=== PATIENT | female | born 1990 | race American Indian/Alaskan Native ===

== ENCOUNTER 2016-08-09 05:59 | Emergency (ER) | payer MEDICAID | END 2016-08-09 06:01 | disposition left against medical advice (07) | LOC: ED 05:59 | DX: M54.5 Low back pain (principal); R51 Headache; Z53.21 Procedure and treatment not carried out due to patient leaving prior to being seen by health care provider ==

== ENCOUNTER 2016-11-11 09:59 | Emergency (ER) | payer SELFPAY ==
[2016-11-11] MEDS ORDERED: TORADOL ONE (12:36)
[2016-11-11] MEDS ORDERED: NACL 0.9% 500 ML IR ONE (12:37)
[2016-11-11] MEDS ORDERED: MARCAINE-EPI/PF 0.5%-1:200,000 INFILTRATI ONE ×2 (12:45→13:00)
[2016-11-11] MEDS ORDERED: TORADOL IM ONE (12:45)
[2016-11-11] MEDS ORDERED: NACL 0.9% IR ONE (12:45)
--- NOTE | 2016-11-11 12:46 | Emergency Department Report ---
- General Chief complaint: Skin/Abscess/Foreign Body Stated complaint: PILONIDAL CYST Time Seen by Provider: 11/11/16 12:15 Source: patient Mode of arrival: Ambulatory Limitations: No Limitations - History of Present Illness Initial comments: This is a 26-year-old female well-nourished with nontoxic or ill in appearance that presents with abscess to the upper midline buttocks area. 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 She stated she has been having incision and drainage for the past 5 years to the area. Patient also stated 3 years ago she had surgery to remove the sac formation/cyst the patient still developed abscesses in the region. Patient denies any pus, drainage, fever, chest pain, short of breath, numbness, tingling , fever or chills. Patient denies any pus or drainage. Describes pain as aching with a level VII out of 10. Patient also stated that she has been prescribed Clinda and Keflex post incision and drainage but stated Bactrim works the best for her after the incision and drainage the area. Patient denies any allergies. Denies past medical history. Last menstrual period 10/19. Patient denies a chance of being . Patient stated she does not remeber getting any tetanus shouts during the past incision and drainage. Patient stated she would like to get one today. MD complaint: abscess/boil -: Gradual, days(s) (3) Tetanus Up to Date: unsure (as per patient does not remember and would like to get one today) Location: buttocks (midline upper) Severity: mild Severity scale (0 -10): 7 Quality: aching Consistency: constant Worsens with: none Context: none Associated symptoms: denies other symptoms Treatments Prior to Arrival: none - Related Data Previous Rx's Medication Instructions Recorded Last Taken Type Ibuprofen [Motrin 600 MG tab] 600 mg PO Q8H PRN #20 tablet 11/11/16 Unknown Rx Sulfamethoxazole/Trimethoprim 1 each PO BID 7 Days 11/11/16 Unknown Rx [Bactrim DS TAB] Allergies Allergy/AdvReac Type Severity Reaction Status Date / Time No Known Allergies Allergy Verified 11/11/16 10:09 Abscess Boil HPI - HPI Chief Complaint: Skin/Abscess/Foreign Body Stated Complaint: PILONIDAL CYST Time Seen by Provider: 11/11/16 12:15 Home Medications: Previous Rx's Medication Instructions Recorded Last Taken Type Ibuprofen [Motrin 600 MG tab] 600 mg PO Q8H PRN #20 tablet 11/11/16 Unknown Rx Sulfamethoxazole/Trimethoprim 1 each PO BID 7 Days 11/11/16 Unknown Rx [Bactrim DS TAB] Allergies/Adverse Reactions: Allergies Allergy/AdvReac Type Severity Reaction Status Date / Time No Known Allergies Allergy Verified 11/11/16 10:09 ED Review of Systems ROS: Stated complaint: PILONIDAL CYST Other details as noted in HPI Constitutional: denies: chills, fever Eyes: denies: eye pain, eye discharge, vision change ENT: denies: ear pain, throat pain Respiratory: denies: cough, shortness of breath, wheezing Cardiovascular: denies: chest pain, palpitations Endocrine: no symptoms reported Gastrointestinal: denies: abdominal pain, nausea, diarrhea Genitourinary: denies: urgency, dysuria, discharge Musculoskeletal: denies: back pain, joint swelling, arthralgia Skin: denies: rash, lesions Neurological: denies: headache, weakness, paresthesias Psychiatric: denies: anxiety, depression Hematological/Lymphatic: denies: easy bleeding, easy bruising ED Past Medical Hx - Past Medical History Hx Hypertension: No Hx Heart Attack/AMI: No Hx Diabetes: No Hx Deep Vein Thrombosis: No Hx Liver Disease: No Hx Renal Disease: No Hx Sickle Cell Disease: No Hx Seizures: No Hx Asthma: No Hx COPD: No Hx HIV: No Additional medical history: pilonidal cyst. OBESITY - Surgical History Hx Pacemaker: No Hx Internal Defibrillator: No Additional Surgical History: several pilonidal cysts removed - Social History Smoking Status: Former Smoker Substance Use Type: Alcohol, Prescribed - Medications Home Medications: Home Medications Medication Instructions Recorded Confirmed Last Taken Type Ibuprofen [Motrin 600 MG tab] 600 mg PO Q8H PRN #20 tablet 11/11/16 Unknown Rx Sulfamethoxazole/Trimethoprim 1 each PO BID 7 Days 11/11/16 Unknown Rx [Bactrim DS TAB] ED Physical Exam - General Limitations: No Limitations General appearance: alert, in no apparent distress - Head Head exam: Present: atraumatic, normocephalic, normal inspection - Eye Eye exam: Present: normal appearance, PERRL, EOMI. Absent: scleral icterus, conjunctival injection, nystagmus, periorbital swelling, periorbital tenderness Pupils: Present: normal accommodation - ENT ENT exam: Present: normal exam, normal orophraynx, mucous membranes moist, TM's normal bilaterally, normal external ear exam - Neck Neck exam: Present: normal inspection, full ROM. Absent: tenderness, meningismus, lymphadenopathy, thyromegaly - Respiratory Respiratory exam: Present: normal lung sounds bilaterally. Absent: respiratory distress, wheezes, rales, rhonchi, stridor, chest wall tenderness, accessory muscle use, decreased breath sounds, prolonged expiratory - Cardiovascular Cardiovascular Exam: Present: regular rate, normal rhythm, normal heart sounds. Absent: bradycardia, tachycardia, irregular rhythm, systolic murmur, diastolic murmur, rubs, gallop - GI/Abdominal GI/Abdominal exam: Present: soft, normal bowel sounds. Absent: distended, tenderness, guarding, rebound, rigid, diminished bowel sounds - Rectal Rectal exam: Present: deferred - Extremities Exam Extremities exam: Present: normal inspection, full ROM, normal capillary refill. Absent: tenderness, pedal edema, joint swelling, calf tenderness - Back Exam Back exam: Present: normal inspection, full ROM. Absent: tenderness, CVA tenderness (R), CVA tenderness (L), muscle spasm, paraspinal tenderness, vertebral tenderness, rash noted - Neurological Exam Neurological exam: Present: alert, oriented X3, CN II-XII intact, normal gait, reflexes normal - Psychiatric Psychiatric exam: Present: normal affect, normal mood - Skin Skin exam: Present: warm, dry, intact, normal color. Absent: rash - Other Other exam information: 5 cm abscess noted to the upper midline buttock area. No pus or drainage. No surrounding cellulitis noted. No redness. Tender to touch. Fluctuance noted. ED Course Vital Signs 11/11/16 11/11/16 11/11/16 10:04 11:34 13:01 Temperature 98.6 F 98.6 F Pulse Rate 90 82 Respiratory 20 16 18 Rate Blood Pressure 136/76 Blood Pressure 126/81 [Right] O2 Sat by Pulse 100 100 Oximetry - I & D Medial Buttocks Type of Procedure: Complex Site: Midline Proximal buttock Blade Size: 11 I & D Procedure: betadine prep, sterile drapes applied, sterile dressing applied Progress: Under sterile procedure, I used Betadine to cleanse the area. I then used 4 x 4 to try and clean the area. I used 25-gauge 5/8 hypo-to inject 0.5% Marcaine with epi 1-200,000 with total volume of 6 mL. I then used Betadine again cleansed area. I then used an 11 blade to make a decision of 1 cm to the site. About 30 mL of purulent drainage noted. I then used a hemostat to break down the abscess. I used 0.9% saline irrigation to flush the area with a total 60 cc . I then used one half iodoform packing. A sterile 4 x 4 with tape has in place as dressing. Patient's are well with no acute signs of distress or complications noted. ED Medical Decision Making - Medical Decision Making Ed course: This is a 26-year-old female that presents with abscess 1- patient was examined by myself. Patient received Toradol 60 mg IM, tetanus in the ED. 2- incision and drainage has been performed by myself. Patient thought well. No signs of distress noted. 3- patient was discharged with Bactrim and was instructed to follow up with her primary care doctor in 3-5 days or if symptoms such as pain unbearable, fever, chills, increased swelling return to emergency room as soon as possible. 4- patient was also instructed to return in 2 days for packing removal. 5- at time time of discharge, the patient does not seem toxic or ill in appearance. No acute signs of distress noted. Patient agrees to discharge treatment plan of care. No further questions noted by the patient. Critical care attestation.: If time is entered above; I have spent that time in minutes in the direct care of this critically ill patient, excluding procedure time. ED Disposition Clinical Impression: Abscess Disposition: DC-01 TO HOME OR SELFCARE Is pt being admited?: No Does the pt Need Aspirin: No Condition: Stable Instructions: Sulfamethoxazole/Trimethoprim (By mouth), Ibuprofen (By mouth), Abscess Incision and Drainage (ED), Acute Wound Care (ED), Abscess (ED) Additional Instructions: Follow up with your primary care doctor in 3-5 days or if symptoms such as pain unbearable, fever, chills, increased swelling return to emergency room as soon as possible. Return to the ER and 48 hours to reassess and remove packing. Take full course of antibodies as prescribed. Prescriptions: Ibuprofen [Motrin 600 MG tab] 600 mg PO Q8H PRN #20 tablet PRN Reason: Pain Sulfamethoxazole/Trimethoprim [Bactrim DS TAB] 1 each PO BID 7 Days Referrals: PRIMARY CAREMD [Primary Care Provider] - 3-5 Days DIA BALL JR, MD [Staff Physician] - 3-5 Days [facility] [Outside] - 3-5 Days [facility] [Outside] - 3-5 Days Forms: Work/School Release Form(ED)
[2016-11-11] MEDS ORDERED: BOOSTRIX IM ONE (12:55)
[2016-11-11 14:21] VITALS: BP 112/78
== END 2016-11-11 14:21 | disposition home or self-care (01) ==
LOC: ED 09:59
DX: L02.31 Cutaneous abscess of buttock (principal); Z87.891 Personal history of nicotine dependence
CPT/HCPCS: 10061; 90471; 90715; 96372; 99282; J1885

== ENCOUNTER 2017-08-19 09:57 | Emergency (ER) | payer SELFPAY ==
[2017-08-19] MEDS ORDERED: TYLENOL PO ONE (10:45)
[2017-08-19 11:36] LABS: Hemoglobin 10.2 gm/dl (10.1-14.3); Mean Corpuscular HGB Conc 32 % (30-34); Mean Corpuscular Volume 75 fl (79-97); Platelet Count 171 K/mm3 (140-440); Red Blood Count 4.25 M/mm3 (3.65-5.03); Red Cell Distribution Width 17.1 % (13.2-15.2)
[2017-08-19 11:37] LABS: Mean Corpuscular Hemoglobin 24 pg (28-32)
--- NOTE | 2017-08-19 14:04 | Ultrasound Report ---
ULTRASOUND OB LESS THAN 14 WEEKS - TRANSABDOMINAL AND TRANSVAGINAL INDICATION: Pain, bleeding. COMPARISON: None similar during this gestation. FINDINGS: Transabdominal and transvaginal pelvic sonography performed in this patient with LMP of 06/25/2017 and estimated menstrual age of 7 weeks and 6 days. It demonstrates an anteverted, gravid uterus estimated at 11.7 x 7.9 x 8.1 cm with a single, viable intrauterine gestation with heart rate of 176 beats per minute. Mean crown-rump length of 2.16 cm corresponds to 8 weeks and 6 days. A 3-4 mm yolk sac also seen. Small pelvic free fluid. Cervix closed. Unremarkable 2.6 x 1.8 x 2.1 cm right ovary. Approximately 5.6 x 4 x 5.4 cm left ovary demonstrates a 4.8 x 3.6 cm intrinsic cyst, endovaginal image 21. CONCLUSION: 1. Single, live intrauterine gestation with an ultrasound estimated age of 8 weeks and 6 days and BATSHEVA of 04/01/2018. 2. Left ovarian cyst. Thank you for the opportunity to participate in this patient's care.
--- NOTE | 2017-08-19 17:05 | Emergency Department Report ---
HPI - General Chief Complaint: Abdominal Pain Time Seen by Provider: 08/19/17 16:54 - HPI HPI: Room 8 The patient is a 27-year-old female presenting with a chief complaint abdominal pain. The patient states for the past 6 weeks she's had lower abdominal pain and cramping in addition to low back pain. Patient states the pain is been occurring intermittently throughout this . The patient states she has not yet seen an [facility]INE [facility]PER[facility] for this . The patient states she had vaginal bleeding for 2 days but it stopped today. Patient denies dysuria or hematuria Location: Pelvis Duration: 6 weeks Quality: Cramping Severity: Moderate Modifying factors: [see above] Context: [see above] Mode of transportation: Unknown ED Past Medical Hx - Past Medical History Additional medical history: pilonidal cyst. OBESITY - Surgical History Additional Surgical History: several pilonidal cysts removed - Family History Family history: no significant - Social History Smoking Status: Never Smoker Substance Use Type: None (denies illicit drug use), Alcohol (occasional) - Medications Home Medications: Home Medications Medication Instructions Recorded Confirmed Last Taken Type Ibuprofen [Motrin 600 MG tab] 600 mg PO Q8H PRN #20 tablet 11/11/16 Unknown Rx Sulfamethoxazole/Trimethoprim 1 each PO BID 7 Days tablet 11/11/16 Unknown Rx [Bactrim DS TAB] ED Review of Systems ROS: Stated complaint: ABD PAIN/LIGHT VAG BLEEDING Other details as noted in HPI Gastrointestinal: abdominal pain Genitourinary: abnormal menses. denies: dysuria, hematuria Physical Exam - Physical Exam Vital Signs: Vital Signs 08/19/17 08/19/17 08/19/17 10:46 15:42 15:43 Temperature 98.6 F 97.9 F Pulse Rate 73 66 Respiratory 16 16 16 Rate Blood Pressure 133/67 124/56 [Right] O2 Sat by Pulse 99 100 100 Oximetry Physical Exam: GENERAL: The patient is well-developed well-nourished female on a stretcher not appear to be in acute distress. [] HEENT: Normocephalic. Atraumatic. Extraocular motions are intact. Patient has moist mucous membranes. NECK: Supple. Trachea midline CHEST/LUNGS: Clear to auscultation. There is no respiratory distress noted. HEART/CARDIOVASCULAR: Regular. There is no tachycardia. There is no gallop rub or murmur. ABDOMEN: Abdomen is soft, nontender. Patient has normal bowel sounds. There is no abdominal distention. SKIN: There is no rash. There is no edema. There is no diaphoresis. NEURO: The patient is awake, alert, and oriented. The patient is cooperative. The patient has normal speech MUSCULOSKELETAL: There is no evidence of acute injury. ED Course Vital Signs 08/19/17 08/19/17 08/19/17 10:46 15:42 15:43 Temperature 98.6 F 97.9 F Pulse Rate 73 66 Respiratory 16 16 16 Rate Blood Pressure 133/67 124/56 [Right] O2 Sat by Pulse 99 100 100 Oximetry ED Medical Decision Making - Lab Data Result diagrams: 08/19/17 11:14 Laboratory Tests 08/19/17 08/19/17 08/19/17 11:14 11:14 11:14 WBC 8.3 RBC 4.25 Hgb 10.2 Hct 32.0 MCV 75 L MCH 24 L MCHC 32 RDW 17.1 H Plt Count 171 HCG, Quant 38772 H Blood Type O POSITIVE - Radiology Data Radiology results: report reviewed (pelvic ultrasound), image reviewed (pelvic ultrasound) [facility] [address] [place] [address] Ultrasound Report Signed Patient: TIMOTHY TOLEDO MR#: [id number] : 1990 Acct:[id number] Age/Sex: 27 / F ADM Date: 08/19/17 Loc: ED Attending Dr: Ordering Physician: GARCÍA KELLY MD Date of Service: 08/19/17 Procedure(s): US OB transvaginal Accession Number(s): [id number] cc: ED MD ROBIN ULTRASOUND OB LESS THAN 14 WEEKS - TRANSABDOMINAL AND TRANSVAGINAL INDICATION: Pain, bleeding. COMPARISON: None similar during this gestation. FINDINGS: Transabdominal and transvaginal pelvic sonography performed in this patient with LMP of 06/25/2017 and estimated menstrual age of 7 weeks and 6 days. It demonstrates an anteverted, gravid uterus estimated at 11.7 x 7.9 x 8.1 cm with a single, viable intrauterine gestation with heart rate of 176 beats per minute. Mean crown-rump length of 2.16 cm corresponds to 8 weeks and 6 days. A 3-4 mm yolk sac also seen. Small pelvic free fluid. Cervix closed. Unremarkable 2.6 x 1.8 x 2.1 cm right ovary. Approximately 5.6 x 4 x 5.4 cm left ovary demonstrates a 4.8 x 3.6 cm intrinsic cyst, endovaginal image 21. CONCLUSION: 1. Single, live intrauterine gestation with an ultrasound estimated age of 8 weeks and 6 days and BATSHEVA of 04/01/2018. 2. Left ovarian cyst. Thank you for the opportunity to participate in this patient's care. Transcribed By: RS Dictated By: DES WEEMS MD Electronically Authenticated By: DSE WEEMS MD Signed Date/Time: 08/19/17 135 DD/ 1346 TD/TT: 08/19/17 1359 - Differential Diagnosis threatened Critical care attestation.: If time is entered above; I have spent that time in minutes in the direct care of this critically ill patient, excluding procedure time. ED Disposition Clinical Impression: Threatened Disposition: DC-01 TO HOME OR SELFCARE Is pt being admited?: No Does the pt Need Aspirin: No Condition: Stable Instructions: Abdominal Pain (ED), Threatened Miscarriage (ED) Additional Instructions: Return to the emergency department immediately should you develop worsening symptoms, fever, inability to tolerate food or liquid or any other concerns. Referrals: [facility] [Provider Group] - 3-5 Days Time of Disposition: 17:12
[2017-08-19 17:18] VITALS: BP 110/52
== END 2017-08-19 17:22 | disposition home or self-care (01) ==
LOC: ED 09:57
DX: O20.0 Threatened abortion (principal); Z3A.08 8 weeks gestation of pregnancy
CPT/HCPCS: 36415; 76805; 76817; 84702; 85027; 86900; 86901